=== PATIENT | male | born 1990 | race Asian ===

== ENCOUNTER 2021-06-24 16:57 | Emergency (ER) | payer SELFPAY ==
[~2021-06-24] VITALS: Ht 175.3 cm; Wt 63.5 kg
[2021-06-24 17:00] VITALS: BP_SYST 136
--- NOTE | 2021-06-24 17:00 | NUR ---
BROUGHT IN BY [place] LOVELL FOR OK TO BOOK
--- NOTE | 2021-06-24 17:00 | NUR ---
PLACED IN HALLWAY CHAIR AND TRIAGED. WILL ASSUME CARE
--- NOTE | 2021-06-24 17:08 | NUR ---
DR HOUSE AT BEDSIDE FOR EVALUATION
--- NOTE | 2021-06-24 17:22 | NUR ---
Patient given written and verbal discharge instructions and verbalizes understanding. ER MD discussed with patient the results and treatment provided. Patient in stable condition. ID arm band removed. Rx of NONE given. Patient educated on pain management and to follow up with PMD. Pain Scale 0/10. Opportunity for questions provided and answered. Medication side effect fact sheet provided.
== END 2021-06-24 17:21 | disposition home or self-care (01) ==
LOC: SED 16:57
DX: Z02.89 Encounter for other administrative examinations (principal)
CPT/HCPCS: 99283